=== PATIENT | male | born 1945 | race Caucasian/White ===

== ENCOUNTER → 2021-01-03 | Outpatient (CLI) | payer BC ==
[~2021-01-03] MED LIST: AMIODARONE PO; ASA81BEC PO; ASPIRIN EC325 M1 PO; ASPIRIN325 PO; B COMPLEX-FOLI1 EACH PO; BUMEX2 MG PO; COLACE100 MG PO; COZAAR 25 MG TA25 M1 PO; CYMBALTA60 MG PO; EFFIENT10 MG PO; ELIQUIS5 MG PO; FISH OIL 1,001000 M3 PO; FLOMAX0.4 MG PO; KLOR-CON M2020 MEQ PO; LISINOPRIL20 MG PO; MELATONIN3 M1 PO; METFORMIN HCL500 MG PO; METOPROLOL SUCC25 M1 PO; MULTI-VITAMIN1 EAC5 PO; NEURONTIN 300300 M1 PO; NEURONTIN300 MG PO; NORCO 5-325 TA1 EACH PO; OXYCODONE HCL 55 MG PO; PLAVIX 75 MG TA75 M1 PO; ROBAXIN 750 MG750 M1 PO; SENNA PLUS TAB1 EACH PO; SEROQUEL 25 MG25 MG PO; SIMVASTATIN40 MG PO; SPIRONOLACTONE25 MG PO; TYLENOL PO; VITAMIN C500 M2 PO; VITAMIN D1000 UNI1 PO; VITAMIN D32000 UNIT PO; VITAMIN D3250 MC2 PO
== END ==
LOC: M.PC 08:55
PROVIDERS: ATTEND Physical Medicine & Rehabilitation
DX: M54.50 Low back pain, unspecified (principal); M79.606 Pain in leg, unspecified